=== PATIENT | female | born 1970 | race Caucasian/White ===

== ENCOUNTER 2019-05-13 19:58 | Emergency (ER) | payer OTHER ==
[~2019-05-13] VITALS: Ht 149.9 cm; Wt 62.6 kg
[~2019-05-13 19:58] MED LIST: CARISOPRODOL 3350 MG PO; CLARITIN10 M2 PO; CYMBALTA60 MG PO; DESYREL50 MG PO; IRON; LISINOPRIL10 MG PO; MIRENA; NORCO 5-325 TA1 EACH PO; SYNTHROID112 MCG PO; ZANTAC 150MG T150 M1 PO
[2019-05-13] MEDS ORDERED: PREDNISONE 20 M20 MG PO (21:35)
[2019-05-13 21:47] VITALS: BP 147/91
== END 2019-05-13 21:59 | disposition home or self-care (01) ==
LOC: ER 19:58
DX: S16.1XXA Strain of muscle, fascia and tendon at neck level, initial encounter (principal); I10 Essential (primary) hypertension; M19.90 Unspecified osteoarthritis, unspecified site; E78.5 Hyperlipidemia, unspecified; K21.9 Gastro-esophageal reflux disease without esophagitis; Z90.89 Acquired absence of other organs; X58.XXXA Exposure to other specified factors, initial encounter; Y92.89 Other specified places as the place of occurrence of the external cause; Y93.89 Activity, other specified; Y99.8 Other external cause status